=== PATIENT | male | born 1980 | race Caucasian/White ===

== ENCOUNTER 2018-06-10 18:48 | Emergency (ER) | payer SELFPAY ==
[~2018-06-10] VITALS: Ht 177.8 cm; Wt 85.8 kg
[~2018-06-10 18:48] MED LIST: ATARAX,VISTARIL50 MG PO; NAPROSYN500 MG PO; NO HOME MEDS; TYLENOL WITH C1 EACH PO; ULTRACET1 TABLET PO
[2018-06-10] MEDS ORDERED: BACTRIM,SEPT1 TABLET PO (20:02)
[2018-06-10] MEDS ORDERED: KEFLEX500 MG PO (20:02)
[2018-06-10 20:19] VITALS: BP 127/87
== END 2018-06-10 20:20 | disposition home or self-care (01) ==
LOC: EME 18:48
DX: L02.612 Cutaneous abscess of left foot (principal); F31.9 Bipolar disorder, unspecified; F17.200 Nicotine dependence, unspecified, uncomplicated; Z88.8 Allergy status to other drugs, medicaments and biological substances
CPT/HCPCS: 99281; 99283